=== PATIENT | male | born 1960 | race Caucasian/White ===

== ENCOUNTER 2017-10-12 21:39 | Inpatient (IN) | payer BC ==
[~2017-10-12] VITALS: Ht 167.6 cm; Wt 96.6 kg
[~2017-10-12 21:39] MED LIST: PRINIVIL10 MG PO
[2017-10-13 08:34] VITALS: BP 151/80
[2017-10-13 16:57] VITALS: BP 157/82
[2017-10-13 19:20] VITALS: BP 161/94
[2017-10-13 23:23] VITALS: BP 125/62
[2017-10-14 03:15] VITALS: BP 150/81
[2017-10-14] MEDS ORDERED: HYDROCODON-ACE1 EAC7 PO (07:12)
[2017-10-14] MEDS ORDERED: CYCLOBENZAPRINE10 MG PO (07:12)
[2017-10-14 08:23] VITALS: BP 149/72
== END 2017-10-14 08:24 | disposition home or self-care (01) | DRG 29 ==
LOC: ENRESERV 21:39 → 2SOUTH 10-13 08:03 → ENRESERV 10-13 14:52 → 3EAST 10-13 15:54 → 2SOUTH 10-13 16:51 → 3EAST 10-14 08:24
PROC: 00BT0ZZ Excision of Spinal Meninges, Open Approach (ICD-10-PCS; principal; 2017-10-13)
DX: D42.1 Neoplasm of uncertain behavior of spinal meninges (principal); G83.4 Cauda equina syndrome; R32 Unspecified urinary incontinence
CPT/HCPCS: 72020; 76000; 88305; 88331; J0131; J0690; J1100; J1170; J2250; J2405; J2710; J2930; J3010; J3480; J7643; S0020